=== PATIENT | female | born 1980 | race Caucasian/White ===

== ENCOUNTER 2021-05-15 05:38 | Inpatient (IN) ==
[2021-05-15] MEDS ORDERED: Buffered Lidocaine 1% SYRIN 1 ml INTRADERM ONE (06:55)
[2021-05-15] MEDS ORDERED: Lactated Ringers 1000 ml BAG 1,000 ML IV ONE (06:55)
[2021-05-15] MEDS ORDERED: Sodium Citrate/Citric Acid LIQ 15 ML UDC PO ONE (07:14)
[2021-05-15] MEDS ORDERED: ceFOXitin 2 GM IVPREMIX 2 GM/50 ML BAG IVPB ONE (07:14)
[2021-05-15] MEDS ORDERED: ceFOXitin 2 GM IVPREMIX 2 GM/50 ML BAG ONE (07:19)
[2021-05-15 07:37] LABS: ABS Eosinophils 0.2 10^3/ul (0-0.6); ABS Lymphocytes 1.5 10^3/ul (1.0-4.8); ABS Monocytes 0.9 10^3/ul (0-0.8); ABS Neutrophils 10.3 10^3/ul (1.5-7.7); Eosinophil % 1.5 %; Hematocrit 38 % (35-47); Hemoglobin 13.4 g/dL (12.0-16.0); Lymphocyte % 11.4 %; Mean Corpuscular HGB Conc 36 g/dL (31-36); Mean Corpuscular Hemoglobin 32 pg (27-31); Mean Corpuscular Volume 90 fL (80-97); Mean Platelet Volume 9.4 fL (7.4-10.4); Platelet Count 194 10^3/uL (150-450); Red Blood Count 4.19 10^6 /uL (3.70-4.87); Red Cell Distribution Width 13 % (10-15); White Blood Count 12.9 10^3/uL (3.5-10.8)
[2021-05-15] MEDS ORDERED: Oxytocin 10 UNITS/ML 1 ML VIAL ONE (07:48)
[2021-05-15] MEDS ORDERED: Morphine PF AMP (0.5MG/ML) 5 MG/10 ML AMP ONE (07:49)
[2021-05-15] MEDS: Lactated Ringers 1000 ml BAG 1,000 ML IV SCH ×2 (08:10→09:05)
[2021-05-15 08:24] LABS: Rapid COVID-19 Molecular Undetected (Undetected)
[2021-05-15] MEDS ORDERED: diPHENhydraMINE IV 50 MG/ML 1 ml VIAL (BENADRYL) ONE (09:07)
[2021-05-15] MEDS ORDERED: Propofol 10 MG/ML 20 ML BTL ONE (09:07)
[2021-05-15] MEDS ORDERED: Ondansetron 4 mg VIAL 2 MG/ML 2 ml VIAL ONE (09:09)
[2021-05-15] MEDS ORDERED: fentaNYL 100 mcg/2 ml 50 MCG/ML VIAL ONE ×2 (09:10→09:58)
[2021-05-15] MEDS ORDERED: Dibucaine 1% OINT 28.35 GM TUBE PR PRN (09:39)
[2021-05-15] MEDS ORDERED: Witch Hazel PAD JAR TOPICAL PRN (09:39)
[2021-05-15] MEDS ORDERED: Glycerin ADULT 2.4 gm SUPP PR PRN (09:39)
[2021-05-15] MEDS ORDERED: Naloxone 0.4 mg VIAL 0.4 mg/ml 1 ml VIAL IV PRN ×2 (09:48→09:49)
[2021-05-15] MEDS ORDERED: fentaNYL 100 mcg/2 ml 50 MCG/ML VIAL IV PRN (09:48)
[2021-05-15] MEDS ORDERED: Ondansetron 4 mg VIAL 2 MG/ML 2 ml VIAL IV PRN (09:49)
[2021-05-15] MEDS ORDERED: DiMENhydriNATE IV 50 mg/ml 1 ml VIAL IV PUSH PRN (09:49)
[2021-05-15] MEDS ORDERED: diPHENhydraMINE IV 50 MG/ML 1 ml VIAL (BENADRYL) IV PRN (09:49)
[2021-05-15 09:53] LABS: Urine Benzodiazepine Screen None Detected (None Detect); Urine Cannabinoids Screen None Detected (None Detect); Urine Opiates Screen None Detected (None Detect)
[2021-05-15] MEDS ORDERED: Oxytocin in LR 20 UNITS/1,000 ML BAG IVPB SCH (10:00)
[2021-05-15] MEDS ORDERED: Lactated Ringers 1000 ml BAG 1,000 ML IV SCH (10:00)
[2021-05-15 10:01] LABS: Urine Appearance Clear; Urine Bilirubin Negative (Negative); Urine Blood Negative (Negative); Urine Color Straw; Urine Glucose Negative (Negative); Urine Ketones Negative (Negative); Urine Nitrite Negative (Negative); Urine Protein Negative (Negative); Urine Specific Gravity 1.003 (1.002-1.030); Urine Urobilinogen Negative (Negative)
[2021-05-15] MEDS: HYDROcodone/ACETAMIN 5/325 mg TAB PO PRN ×2 (12:28→20:38)
[2021-05-16 06:00] LABS: ABS Eosinophils 0.2 10^3/ul (0-0.6); ABS Lymphocytes 1.1 10^3/ul (1.0-4.8); ABS Monocytes 0.7 10^3/ul (0-0.8); ABS Neutrophils 8.1 10^3/ul (1.5-7.7); Eosinophil % 1.8 %; Hematocrit 29 % (35-47); Hemoglobin 10.4 g/dL (12.0-16.0); Lymphocyte % 10.9 %; Mean Corpuscular HGB Conc 36 g/dL (31-36); Mean Corpuscular Hemoglobin 32 pg (27-31); Mean Corpuscular Volume 90 fL (80-97); Mean Platelet Volume 9.1 fL (7.4-10.4); Platelet Count 161 10^3/uL (150-450); Red Blood Count 3.23 10^6 /uL (3.70-4.87); Red Cell Distribution Width 13 % (10-15); White Blood Count 10.2 10^3/uL (3.5-10.8)
[2021-05-16 08:07] LABS: EGFR African American 131.4 (>60); EGFR Non-African American 108.6 (>60)
[2021-05-17] MEDS ORDERED: Butalb/Acetamin/Caff TAB 325-50-40MG PO ONE (04:15)
[2021-05-17] MEDS: Ondansetron ODT 4 mg TAB 4 MG TAB SL PRN (20:07)
[2021-05-18] MEDS: Ondansetron ODT 4 mg TAB 4 MG TAB SL PRN (02:03)
[2021-05-18 07:57] VITALS: BP 121/76
== END 2021-05-18 15:39 | disposition home or self-care (01) | DRG 540 ==
LOC: MCHOBOUT 05:38 → MCHOB 06:34
PROVIDERS: ADMIT Obstetrics & Gynecology; ATTEND Obstetrics & Gynecology